=== PATIENT | male | born 1985 | race Caucasian/White ===

== ENCOUNTER 2018-12-15 06:10 | Day surgery (SDC) | payer OTHER ==
[~2018-12-15 06:10] MED LIST: MULTI-VITAMIN1 EACH PO
== END 2018-12-15 12:05 | disposition home or self-care (01) ==
LOC: CIR.AMB 06:10
DX: M75.02 Adhesive capsulitis of left shoulder (principal); M25.312 Other instability, left shoulder; S43.422S Sprain of left rotator cuff capsule, sequela